=== PATIENT | male | born 2005 | race Caucasian/White ===

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

== ENCOUNTER 2023-03-05 16:52 | Emergency (ER) | payer MEDICAID ==
[2023-03-05] MEDS: Cephalexin 500 MG Cap PO ONE (17:27)
[2023-03-05] MEDS: Ibuprofen 400 MG Tab PO ONE (17:28)
== END 2023-03-05 17:41 | disposition home or self-care (01) ==
LOC: LB.ED 16:52
DX: L60.0 Ingrowing nail (principal); J45.909 Unspecified asthma, uncomplicated; E66.9 Obesity, unspecified; Z68.36 Body mass index [BMI] 36.0-36.9, adult
CPT/HCPCS: 99283; A9270

== ENCOUNTER 2025-03-07 17:52 | Emergency (ER) | payer BC, MEDICAID ==
[2025-03-07 18:42] LABS: INFLUENZA A NAA NEGATIVE (NEGATIVE); INFLUENZA B NAA NEGATIVE (NEGATIVE); RESPIRATORY SYNCYTIAL VIR NAA NEGATIVE (NEGATIVE)
[2025-03-07 18:46] LABS: CORONAVIRUS COVID-19 NAA NEGATIVE (NEGATIVE)
[2025-03-07 18:56] LABS: BASOPHILS ABSOLUTE AUTO 0.03 K/uL (0.02-0.10); BASOPHILS PERCENT AUTO 0.3 % (0.0-0.5); EOSINOPHILS ABSOLUTE AUTO 0.31 K/uL (0.04-0.40); EOSINOPHILS PERCENT AUTO 3.0 % (1.0-5.0); LYMPHOCYTES ABSOLUTE AUTO 1.80 K/uL (1.50-4.00); LYMPHOCYTES PERCENT AUTO 17.5 % (20.0-40.0); MEAN PLATELET VOLUME 9.3 fL (6.0-10.0); MONOCYTES ABSOLUTE AUTO 1.13 K/uL (0.20-0.80); MONOCYTES PERCENT AUTO 11.0 % (3.0-10.0); NEUTROPHILS ABSOLUTE AUTO 6.99 K/uL (2.00-7.50); NEUTROPHILS PERCENT AUTO 68.2 % (45.0-70.0); PLATELET COUNT,PLT 237 K/uL (150-400); RED BLOOD CELL COUNT 5.57 M/uL (4.50-6.50); RED CELL DISTRIBUTION WIDTH 13.2 % (11.0-16.0); WHITE BLOOD CELL COUNT,WBC 10.3 K/uL (4.0-11.0)
== END 2025-03-07 19:15 | disposition home or self-care (01) ==
LOC: LB.ED 17:52
DX: B34.9 Viral infection, unspecified (principal); J45.909 Unspecified asthma, uncomplicated; F17.200 Nicotine dependence, unspecified, uncomplicated; E66.9 Obesity, unspecified; Z68.36 Body mass index [BMI] 36.0-36.9, adult
CPT/HCPCS: 36415; 71046; 85025; 87637; 99283; 99285

== ENCOUNTER 2025-03-10 08:05 | Emergency (ER) | payer BC ==
[2025-03-10 09:13] LABS: INFLUENZA A NAA NEGATIVE (NEGATIVE); INFLUENZA B NAA NEGATIVE (NEGATIVE); RESPIRATORY SYNCYTIAL VIR NAA NEGATIVE (NEGATIVE)
[2025-03-10 09:15] LABS: CORONAVIRUS COVID-19 NAA NEGATIVE (NEGATIVE)
[2025-03-10] MEDS: Ketorolac 15 MG/ML SDV IM ONE (10:01)
== END 2025-03-10 10:04 | disposition home or self-care (01) ==
LOC: LB.ED 08:05
DX: J02.9 Acute pharyngitis, unspecified (principal)
CPT/HCPCS: 87637; 87651; 96372; 99284; J1885

== ENCOUNTER 2025-03-14 19:20 | Emergency (ER) | payer BC ==
[2025-03-14] MEDS: Ketorolac 30 MG/ML SDV IM ONE (20:08)
== END 2025-03-14 20:17 | disposition home or self-care (01) ==
LOC: LB.ED 19:20
DX: H65.21 Chronic serous otitis media, right ear (principal); J45.909 Unspecified asthma, uncomplicated; E66.9 Obesity, unspecified; Z68.38 Body mass index [BMI] 38.0-38.9, adult
CPT/HCPCS: 96372; 99283; A9270-GY; J1885